=== PATIENT | male | born 1945 | race Caucasian/White ===

== ENCOUNTER 2022-07-02 07:21 | Day surgery (SDC) | payer MEDICARE ==
[~2022-07-02 07:21] MED LIST: Lactated Ringers 1,000 ML IV SCH
[2022-07-02] MEDS ORDERED: Propofol 200 MG/20 ML SDV ONE ×2 (08:52→09:05)
[2022-07-02] MEDS ORDERED: Lidocaine 2% 5 ML SDV ONE (08:52)
[2022-07-02] MEDS ORDERED: Lactated Ringers 1,000 ML IV SCH (10:00)
== END 2022-07-02 10:27 | disposition home or self-care (01) ==
LOC: MW.SDS 07:21
PROVIDERS: ATTEND Surgery
DX: D12.0 Benign neoplasm of cecum (principal); K29.00 Acute gastritis without bleeding; K29.50 Unspecified chronic gastritis without bleeding; K31.89 Other diseases of stomach and duodenum; K57.30 Diverticulosis of large intestine without perforation or abscess without bleeding; K21.9 Gastro-esophageal reflux disease without esophagitis; F32.A Depression, unspecified; M19.90 Unspecified osteoarthritis, unspecified site; E66.9 Obesity, unspecified; E03.9 Hypothyroidism, unspecified; G47.33 Obstructive sleep apnea (adult) (pediatric); I10 Essential (primary) hypertension; F41.9 Anxiety disorder, unspecified; Z79.899 Other long term (current) drug therapy; Z98.890 Other specified postprocedural states; Z68.36 Body mass index [BMI] 36.0-36.9, adult; Z86.16 Personal history of COVID-19; Z79.890 Hormone replacement therapy
CPT/HCPCS: 43239; 45378; J2704; J7120; J3490